=== PATIENT | female | born 1995 | race Two or more races ===

== ENCOUNTER 2016-07-11 13:45 | Inpatient (IN) | payer MEDICAID ==
[~2016-07-11] VITALS: Ht 30.5 cm; Wt 0.5 kg
[~2016-07-11 13:45] MED LIST: NORPTMEDS CO
[2016-07-11] MEDS ORDERED: LACT. RINGERS/OXYTOCIN 20UNITS 1,000 ML IV ONE (14:13)
[2016-07-11] MEDS ORDERED: ACETAMINOPHEN 325 MG TAB PO PRN (14:30)
[2016-07-11] MEDS: DOCUSATE CALCIUM 240 MG CAP PO SCH (15:00)
[2016-07-11 18:46] LABS: Basophils # (auto) 0 uL; Basophils % (auto) 0.1 % (0.0-2.0); DEFINITIVE VIEW TRANSMISSION; Eosinophils # (auto) 0 uL; Hematocrit 40.4 % (36.0-46.0); Hemoglobin 12.8 g/dL (12.2-16.2); Lymphocytes # (auto) 1.6 uL; Lymphocytes % (auto) 8.4 % (10.0-50.0); Mean Corpuscular Hemoglobin 26.1 pg (28.0-32.0); Mean Corpuscular Hgb Conc. 31.7 g/dL (32.0-36.0); Mean Corpuscular Volume 82.2 fL (80.0-100.0); Mean Platelet Volume 10.4 fL (7.4-10.4); Monocytes # (auto) 0.4 uL; Neutrophils % (auto) 89.5 % (37.0-80.0); Platelet Count (auto) 217 10^3/uL (140-450)
[2016-07-11 19:04] LABS: INR 0.93 (0.9-1.15); Partial Thromboplastin Time 24.8 sec (22.64-33.71); Prothrombin Time 9.6 sec (9.37-12.3)
[2016-07-11 19:13] VITALS: BP 106/59
[2016-07-11] MEDS: IBUPROFEN 600 MG TAB PO PRN (19:48)
[2016-07-11 23:10] VITALS: BP 103/57
[2016-07-12 03:27] VITALS: BP 101/56
[2016-07-12] MEDS: IBUPROFEN 600 MG TAB PO PRN ×2 (03:36→18:45)
[2016-07-12 08:00] VITALS: BP 114/63
[2016-07-12] MEDS: DOCUSATE CALCIUM 240 MG CAP PO SCH (10:00)
[2016-07-12] MEDS ORDERED: TETANUS-DIPTH-ACEL PERTUSSIS 0.5ML SYRG IM ONE (10:15)
[2016-07-12] MEDS ORDERED: INFLUENZA QUAD 2016-2017 0.5 ML SYRG IM ONE (10:15)
[2016-07-12 12:00] VITALS: BP 110/63
[2016-07-12 16:00] VITALS: BP 115/63
[2016-07-12 18:51] VITALS: BP 105/67
[2016-07-12 23:02] VITALS: BP 106/54
[2016-07-13 03:11] VITALS: BP 85/54
[2016-07-13 08:00] VITALS: BP 110/70
[2016-07-13] MEDS: DOCUSATE CALCIUM 240 MG CAP PO SCH (10:00)
[2016-07-13 12:00] VITALS: BP 110/63
[2016-07-13] MEDS ORDERED: INFLUENZA QUAD 2016-2017 0.5 ML SYRG IM ONE (14:15)
== END 2016-07-13 15:45 | disposition home or self-care (01) | DRG 560 ==
LOC: LDRP 13:45 → OBSVTOIN 13:45
PROVIDERS: ADMIT Specialist; ATTEND Specialist
PROC: 10E0XZZ Delivery of Products of Conception, External Approach (ICD-10-PCS; principal; 2016-07-11)
DX: O60.14X0 Preterm labor third trimester with preterm delivery third trimester, not applicable or unspecified (principal); O45.93 Premature separation of placenta, unspecified, third trimester; Z37.0 Single live birth; Z3A.36 36 weeks gestation of pregnancy
CPT/HCPCS: 36415; 59025; 59409; 81002; 85025; 85610; 85730; 86592; 86703; 86762; 86850; 86900; 86901; 87340; 96365; 96366; 96372; J2590